=== PATIENT | female | born 1940 | race Caucasian/White ===

== ENCOUNTER 2017-07-19 12:03 | Outpatient (CLI) | payer OTHER ==
[~2017-07-19 12:03] MED LIST: AMBIEN5 MG PO; LIPITOR20 MG PO; SYNTHROID75 MCG; SYNTHROID88 MCG; ZANTAC 7575 MG PO
== END 2017-07-19 15:00 | disposition home or self-care (01) ==
LOC: TOM 12:03
DX: J32.8 Other chronic sinusitis (principal)

== ENCOUNTER 2018-01-31 14:20 | Emergency (ER) | payer OTHER ==
[~2018-01-31] VITALS: Ht 157.5 cm; Wt 54.4 kg
== END 2018-01-31 16:39 | disposition home or self-care (01) ==
LOC: ER 14:20
DX: B34.9 Viral infection, unspecified (principal)

== ENCOUNTER 2018-07-27 17:06 | Emergency (ER) | payer OTHER ==
[~2018-07-27] VITALS: Ht 157.5 cm; Wt 59.0 kg
[2018-07-27] MEDS ORDERED: FLOVENT DISKU100 MCG (17:46)
[2018-07-27] MEDS ORDERED: PREVACID30 MG (17:46)
== END 2018-07-27 21:36 | disposition home or self-care (01) ==
LOC: ER 17:06
DX: J06.9 Acute upper respiratory infection, unspecified (principal)

== ENCOUNTER 2020-06-02 07:26 | Outpatient (CLI) | payer OTHER ==
[~2020-06-02 07:26] MED LIST changes: +FLOVENT DISKU100 MCG; +PREVACID30 MG
== END 2020-06-02 07:34 | disposition home or self-care (01) ==
LOC: TOM 07:26
PROVIDERS: ATTEND Internal Medicine Gastroenterology
DX: K57.90 Diverticulosis of intestine, part unspecified, without perforation or abscess without bleeding (principal); R10.84 Generalized abdominal pain; R10.32 Left lower quadrant pain
CPT/HCPCS: 74176; Q9965

== ENCOUNTER 2022-02-09 12:24 | Outpatient (CLI) | payer OTHER ==
[~2022-02-09 12:24] MED LIST changes: +AVAPRO150 MG; +PROTONIX40 MG
== END 2022-02-09 12:30 | disposition home or self-care (01) ==
LOC: SONOGRAMA 12:24
PROVIDERS: ATTEND Internal Medicine Gastroenterology
DX: R10.11 Right upper quadrant pain (principal)

== ENCOUNTER 2022-05-18 12:59 | Outpatient (CLI) | payer OTHER | END 2022-05-18 13:01 | disposition home or self-care (01) | LOC: SONOGRAMA 12:59 | PROVIDERS: ATTEND General Practice | DX: E07.9 Disorder of thyroid, unspecified (principal) ==